=== PATIENT | male | born 1950 | race Caucasian/White ===

== ENCOUNTER → 2016-07-09 | Outpatient (CLI) | payer OTHER ==
[~2016-07-09] MED LIST: ASPI81TA28 PO; ATOR-24 PO; BND25 PO; CHOL200010; CIPR-255 PO; DICY20TA35 PO; EPP3/2 IM; HYDROCODONE PO; HYG/25 PO; LEVO100T PO; LISI-792 PO; METR-163 PO; MULT-513 PO; NAPR1TAB9 PO; ONDA4TAB10 SL; POTA10CA28 PO; POTASSIUM OTC PO; TYLOTC500 PO
[2016-07-09 12:57] LABS: CHOLESTEROL/HDL RATIO 7.2
[2016-07-09 13:10] LABS: BLOOD UREA NITROGEN 15 mg/dl (7-18); BUN/CREATININE RATIO 16.3 (10-20); CALCIUM 9.1 mg/dl (8.5-10.1); CARBON DIOXIDE 28 mmol/L (21-32); CHLORIDE 103 mmol/L (98-107); CREATININE 0.94 mg/dl (0.60-1.40); GLUCOSE 127 mg/dl (70-99); POTASSIUM 3.7 mmol/L (3.5-5.1); SODIUM 139 mmol/L (136-145)
[2016-07-09 13:13] LABS: ALB/GLOB RATIO 1.1 (0.9-2); ALKALINE PHOSPHATASE 57 U/L (45-117); ALT/SGPT 115 U/L (12-78); AST/SGOT 59 U/L (15-37)
== END | disposition home or self-care (01) ==
LOC: C.LABPVFM 08:02
PROVIDERS: ATTEND Nurse Practitioner Family
DX: E78.5 Hyperlipidemia, unspecified (principal); R73.01 Impaired fasting glucose; R25.0 Abnormal head movements; R07.9 Chest pain, unspecified; I10 Essential (primary) hypertension; R25.2 Cramp and spasm

== ENCOUNTER 2016-10-06 14:01 | Emergency (ER) | payer OTHER ==
[~2016-10-06] VITALS: Ht 172.7 cm; Wt 85.9 kg
[~2016-10-06 14:01] MED LIST changes: -BND25 PO; -CHOL200010; -DICY20TA35 PO; +DIPH25CA5 PO; -EPP3/2 IM; -HYG/25 PO; -NAPR1TAB9 PO; -POTA10CA28 PO
[2016-10-06 14:05] VITALS: TEMP 36.8; Ht 172.7 cm; Wt 85.9 kg
[2016-10-06] MEDS ORDERED: SODIUM CHLORIDE 0.9% 1000ML 1,000 ML IV STA (14:30)
[2016-10-06 14:44] LABS: BASO % 0.5 %; BASO ABS # 0.05 K/uL (0-0.2); COMPLETE YES; EOS % 1.8 %; HEMATOCRIT 41.7 % (42-52); IG% 0.4 %; LYMPH % 22.3 %; LYMPH ABS # 2.16 K/uL (1.2-3.4); MEAN CELL VOLUME 87.6 fL (80-100); MEAN CORPUSCULAR HEMOGLOBIN 32.6 pg (25-34); MEAN CORPUSCULAR HGB CONC 37.2 g/dl (32-36); MEAN PLATELET VOLUME 10.2 fL (7.4-10.4); MONO % 8.2 %; NEUT % 66.8 %; PLATELET COUNT 187 K/uL (130-400); RED BLOOD COUNT 4.76 M/uL (4.7-6.1)
[2016-10-06] MEDS ORDERED: OPTIRAY 320 IV PRN (14:45)
[2016-10-06 15:00] LABS: BUN/CREATININE RATIO 17.1 (10-20); CALCIUM 9.4 mg/dl (8.5-10.1); CREATININE 0.83 mg/dl (0.60-1.40); POTASSIUM 3.2 mmol/L (3.5-5.1)
[2016-10-06 15:03] LABS: ALB/GLOB RATIO 1.4 (0.9-2)
[2016-10-06] MEDS ORDERED: CHOL200010 (15:54)
[2016-10-06] MEDS ORDERED: HYG/25 PO (15:54)
--- NOTE | 2016-10-06 16:23 | DIAGNOSTIC IMAGING REPORT ---
ABDOMEN AND PELVIS CT WITH IV CONTRAST CT DOSE: 872.06 mGycm HISTORY: Right flank pain RLQ pain TECHNIQUE: Multiaxial CT images of the abdomen and pelvis were performed following the use of intravenous contrast. COMPARISON STUDY: 07/01/2016 FINDINGS: Lung bases are clear. Fatty infiltration of liver. Kidneys and 8 uniformly. Spleen is unremarkable. Bowel pattern is nonobstructive. The appendix is normal. Bladder is midline. There is wall thickening of the sigmoid colon consistent with chronic diverticulosis. There is no evidence for abscess collection or obstruction. IMPRESSION: Chronic sigmoid diverticulosis. Fatty infiltration of liver. Otherwise negative study Electronically signed by: Andrés Alamo M.D. 10/06/2016 4:21 PM Dictated Date/Time: 10/06/2016 4:19 PM
[2016-10-06 16:38] LABS: URINE APPEARANCE CLEAR (CLEAR); URINE BILIRUBIN NEG (NEG); URINE COLOR YELLOW; URINE NITRITE NEG (NEG); URINE PH 5.5 (4.5-7.5); URINE SPECIFIC GRAVITY 1.021 (1.000-1.030); UROBILINOGEN NEG (NEG); ZZUR CULT IF INDIC CLEAN CATCH NO
[2016-10-06 16:46] LABS: MANUAL MICROSCOPIC REQUIRED? NO; REVIEW REQ? NO
[2016-10-06] MEDS ORDERED: NAPR1TAB9 PO (16:54)
[2016-10-06] MEDS ORDERED: DICY20TA35 PO (17:03)
--- NOTE | 2016-10-06 17:03 | EMERGENCY ROOM VISIT NOTE ---
History First contact with patient: 14:22 Chief Complaint: ABDOMINAL PAIN Stated Complaint: SEVERE PAIN RT LWR STOMACH Nursing Triage Summary: pt reports he has had right abd pain x 3 weeks "it went away and then came back 4 days ago and tody the pain is up higher at my belt line, i'm going to bawl, i need to work so i just want to go home, i guess i will need an operation." pt denies any nausea or vomitting. History of Present Illness The patient is a 66 year old male who presents to the Emergency Room with complaints of right lower abdominal pain. The patient states that he had pain in the right lower abdomen approximately 3 weeks ago. He states that the pain went away, but returned one week ago. He states that it has worsened over the past 2 days and has been worse when he is coughing. He has had a normal appetite and denies any nausea or vomiting. His bowel movements have been normal. He denies any urinary symptoms. The patient denies any history of abdominal problems or abdominal surgeries. He rates the discomfort a 4/10. He is not taking any medications at home for the pain. Review of Systems A complete 10-point Review of Systems was discussed with the patient, with pertinent positives and negatives listed in the History of Present Illness. All remaining Review of Systems questions can be considered negative unless otherwise specified. Past Medical/Surgical History Medical Problems: (1) Abrasion of chest wall (2) Bursitis of elbow (3) Calcific tendinitis (4) Injury caused by animal (5) Left leg injury (6) Multiple abrasions Social History Smoking Status: Current Every Day Smoker Marital Status: Housing Status: lives with family Occupation Status: employed Current/Historical Medications Scheduled Aspirin (Aspirin Ec), 81 MG PO DAILY Atorvastatin (Lipitor), 40 MG PO DAILY Chlorthalidone (Hygroton), 25 MG PO DAILY Cholecalciferol (Vitamin D), 2,000 UNITS DAILY Levothyroxine Sodium (Synthroid), 100 MCG PO DAILY Multivitamins/Minerals (Mvi With Minerals), 1 TAB PO DAILY [Potassium Otc], 1 TAB PO DAILY Scheduled PRN Acetaminophen (Tylenol), 1,000 MG PO BID PRN for Headache or Pain Dicyclomine Hcl (Bentyl), 1 TAB PO TID PRN for Pain Naproxen (Aleve), 440 MG PO QAM PRN for Pain Allergies Coded Allergies: Penicillins (Verified Allergy, Unknown, HIVES, 07/01/16) PCN CAUSED HIVES, BUT PT HAS TAKEN AMOXICILLIN W/O PROBLEMS; NO RESP PROBLEMS WITH PCN Codeine (Verified Adverse Reaction, Unknown, makes me feel weird, 07/01/16 ) Uncoded Allergies: ENVIRONMENTAL (Allergy, Intermediate, RUNNY NOSE, ITCHY EYES, 11/26/14) Physical Exam Vital Signs Date Time Temp Pulse Resp B/P Pulse Ox O2 Delivery O2 Flow Rate FiO2 10/06/16 17:18 79 20 153/99 93 10/06/16 15:50 82 20 159/79 95 Room Air 10/06/16 14:05 36.8 89 20 171/95 94 Room Air Physical Exam VITALS: Vitals are noted on the nurse's note and reviewed by myself. Vital signs stable. GENERAL: This is a 66-year-old male, in no acute distress, nondiaphoretic, well- developed well-nourished. HEART: Regular rate and rhythm without murmurs gallops or rubs. LUNGS: Clear to auscultation bilaterally without wheezes, rales or rhonchi. ABDOMEN: Positive bowel sounds x 4. Soft, with tenderness over the right lower quadrant. No guarding or rebound tenderness. No masses or organomegaly. NEURO: Patient was alert and oriented to person place and time. Medical Decision & Procedures ER Provider Diagnostic Interpretation: ABDOMEN AND PELVIS CT WITH IV CONTRAST CT DOSE: 872.06 mGycm HISTORY: Right flank pain RLQ pain TECHNIQUE: Multiaxial CT images of the abdomen and pelvis were performed following the use of intravenous contrast. COMPARISON STUDY: 07/01/2016 FINDINGS: Lung bases are clear. Fatty infiltration of liver. Kidneys and 8 uniformly. Spleen is unremarkable. Bowel pattern is nonobstructive. The appendix is normal. Bladder is midline. There is wall thickening of the sigmoid colon consistent with chronic diverticulosis. There is no evidence for abscess collection or obstruction. IMPRESSION: Chronic sigmoid diverticulosis. Fatty infiltration of liver. Otherwise negative study Laboratory Results 10/06/16 14:30 Red Blood Count 4.76, Mean Corpuscular Volume 87.6, Mean Corpuscular Hemoglobin 32.6, Mean Corpuscular Hemoglobin Concent 37.2, Mean Platelet Volume 10.2, Neutrophils (%) (Auto) 66.8, Lymphocytes (%) (Auto) 22.3, Monocytes (%) (Auto) 8.2, Eosinophils (%) (Auto) 1.8, Basophils (%) (Auto) 0.5, Neutrophils # (Auto) 6.48, Lymphocytes # (Auto) 2.16, Monocytes # (Auto) 0.80, Eosinophils # (Auto) 0.17, Basophils # (Auto) 0.05 10/06/16 14:30 Test 10/06/16 14:30 10/06/16 15:30 White Blood Count 9.70 K/uL (4.8-10.8) Red Blood Count 4.76 M/uL (4.7-6.1) Hemoglobin 15.5 g/dL (14.0-18.0) Hematocrit 41.7 % (42-52) Mean Corpuscular Volume 87.6 fL (80-100) Mean Corpuscular Hemoglobin 32.6 pg (25-34) Mean Corpuscular Hemoglobin Concent 37.2 g/dl (32-36) Platelet Count 187 K/uL (130-400) Mean Platelet Volume 10.2 fL (7.4-10.4) Neutrophils (%) (Auto) 66.8 % Lymphocytes (%) (Auto) 22.3 % Monocytes (%) (Auto) 8.2 % Eosinophils (%) (Auto) 1.8 % Basophils (%) (Auto) 0.5 % Neutrophils # (Auto) 6.48 K/uL (1.4-6.5) Lymphocytes # (Auto) 2.16 K/uL (1.2-3.4) Monocytes # (Auto) 0.80 K/uL (0.11-0.59) Eosinophils # (Auto) 0.17 K/uL (0-0.5) Basophils # (Auto) 0.05 K/uL (0-0.2) RDW Standard Deviation 43.2 fL (36.4-46.3) RDW Coefficient of Variation 13.4 % (11.5-14.5) Immature Granulocyte % (Auto) 0.4 % Immature Granulocyte # (Auto) 0.04 K/uL (0.00-0.02) Anion Gap 9.0 mmol/L (3-11) Est Creatinine Clear Calc Drug Dose 95.9 ml/min Estimated GFR () 107.8 Estimated GFR (Non- 93.0 BUN/Creatinine Ratio 17.1 (10-20) Calcium Level 9.4 mg/dl (8.5-10.1) Total Bilirubin 0.8 mg/dl (0.2-1) Aspartate Amino Transf (AST/SGOT) 35 U/L (15-37) Alanine Aminotransferase (ALT/SGPT) 70 U/L (12-78) Alkaline Phosphatase 63 U/L (45-117) Total Protein 7.7 gm/dl (6.4-8.2) Albumin 4.5 gm/dl (3.4-5.0) Globulin 3.2 gm/dl (2.5-4.0) Albumin/Globulin Ratio 1.4 (0.9-2) Lipase 476 U/L (73-393) Urine Color YELLOW Urine Appearance CLEAR (CLEAR) Urine pH 5.5 (4.5-7.5) Urine Specific [place] 1.021 (1.000-1.030) Urine Protein NEG (NEG) Urine Glucose (UA) NEG (NEG) Urine Ketones NEG (NEG) Urine Occult Blood NEG (NEG) Urine Nitrite NEG (NEG) Urine Bilirubin NEG (NEG) Urine Urobilinogen NEG (NEG) Urine Leukocyte Esterase NEG (NEG) Medications Administered Medications (Trade) Dose Ordered Sig/Melo Route Start Time Stop Time Status Last Admin Dose Admin Sodium Chloride (Nss 1000ml) 1,000 ml @ 999 mls/hr Q1H1M STAT IV 10/06/16 14:30 10/06/16 15:30 DC 10/06/16 14:30 999 MLS/HR Medical Decision Differential diagnosis includes appendicitis, diverticulitis, bowel obstruction , hernia, gastroenteritis, colitis, malignancy, kidney stone, among others. The patient was evaluated as above. Labs were drawn and IV access was obtained. Imaging studies were performed and read by radiology as above. The patient was medicated with 1 L normal saline solution. The patient was reassessed multiple times during their stay in the emergency department and remained in stable condition. The patient is a 66-year-old male who presents today complaining of right lower quadrant abdominal pain. Labs revealed no leukocytosis, anemia or concerning electrolyte abnormalities. Urinalysis was not suggestive of infection. Lipase was elevated at 476, but given the patient's history and physical exam I do not feel this represents pancreatitis. CT of the abdomen and pelvis was performed and showed no acute infectious findings within the abdomen. The patient will be placed on Bentyl in case this is intestinal spasms. He was instructed to follow-up with his primary care provider for further evaluation of his abdominal pain. He was instructed to return here with any worsening of his current condition or new/concerning symptoms. The patient requested multiple times to be able to drink his Mountain Dew and did not appear to be in significant discomfort on exam. Based on the patient's presentation, lab results, and imaging studies, I feel the patient is stable for outpatient treatment. The patient's case was reviewed with Dr. Li, ED attending physician, who agreed with my assessment and treatment plan. Discharge instructions were reviewed with the patient. The patient verbalized understanding of my assessment and treatment plan and was discharged home in good condition. Impression Primary Impression: Right lower quadrant abdominal pain Departure Information Dispostion Home / Self-Care Condition GOOD Prescriptions Dicyclomine Hcl (BENTYL) 20 Mg Tab 1 TAB PO TID Y for Pain for 7 Days, #21 TAB Prov: Glenna Chaves .CASSANDRA 10/06/16 Referrals Carrie Taylor (PCP) Patient Instructions My [facility] Additional Instructions You have been treated in the Emergency Department for your Abdominal Pain. Laboratory results and imaging studies have ruled out any emergent causes for your abdominal pain which would warrant admission or surgery. Bentyl 3 times a day as needed for pain. For pain control, you can use the following [id number] medicines (if >12 yo): - Regular strength (325mg/tab) Tylenol (acetaminophen) 2 tabs every 4-6 hours as needed. Do not exceed 12 tablets in a 24 hour period. Avoid taking more than 4 grams (4000 mg) of Tylenol per day. This includes any other sources of acetaminophen you may take on a regular basis. - Regular strength (200 mg/tab) Advil (ibuprofen) 1-2 tabs every 4-6 hours as needed. Do not exceed a dose of 3200 mg per day. Drink plenty of water and stay well hydrated. Follow-up with your primary care provider within 48 hours for reevaluation of your abdominal pain. Return to the emergency department if your symptoms persist despite treatment plan outlined above or if the following symptoms occur: increased fevers, chills , worsening nausea/vomiting, blood in your stool or urine.
[2016-10-06 17:18] VITALS: BP 153/99; PULSE 79; O2SAT 93
== END 2016-10-06 17:20 | disposition home or self-care (01) ==
LOC: C.EDB 14:03 → C.EDC 17:20
DX: R10.9 Unspecified abdominal pain (principal); F17.210 Nicotine dependence, cigarettes, uncomplicated; Z79.82 Long term (current) use of aspirin; Z79.899 Other long term (current) drug therapy

== ENCOUNTER 2016-10-24 13:27 | Emergency (ER) | payer OTHER ==
[~2016-10-24] VITALS: Ht 172.7 cm; Wt 85.0 kg
[~2016-10-24 13:27] MED LIST changes: +CHOL200010; -CIPR-255 PO; -DIPH25CA5 PO; -HYDROCODONE PO; +HYG/25 PO; -LISI-792 PO; -METR-163 PO; +NAPR1TAB9 PO; -ONDA4TAB10 SL
[2016-10-24] MEDS ORDERED: METHYLPREDNISOLONE 125 MG VIAL IV STA (13:34)
[2016-10-24] MEDS ORDERED: EpINEphrine INJ 1MG/ML AMP 1 MG/ML AMP SQ STA (13:34)
[2016-10-24] MEDS ORDERED: ALBUT/IPRATROP 3MG/0.5MG NEB 3 ML VIAL INH STA (13:34)
[2016-10-24] MEDS ORDERED: EPINEPHRINE ADULT AUTO-INJECT 0.3 MG SYR ONE (13:45)
[2016-10-24] MEDS ORDERED: SODIUM CHLORIDE 0.9% 1000ML 1,000 ML IV ONE (13:45)
[2016-10-24 13:50] VITALS: Ht 172.7 cm; Wt 85.0 kg
[2016-10-24 13:51] VITALS: O2SAT 99
--- NOTE | 2016-10-24 13:54 | EMERGENCY ROOM VISIT NOTE ---
History Report prepared by Yusef: Ann Benavidez Under the Supervision of: Dr. Migel Li M.D. First contact with patient: 13:29 Chief Complaint: ALLERGIC REACTION Stated Complaint: ALLERGIC REACTION/UNKNOWN, SOB, SWOLLEN EYES History of Present Illness The patient is a 66 year old male who presents to the Emergency Room with complaints of an episode of an unknown allergic reaction starting about an hour ago. 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 The patient states that he became short of breath. He states he went into the house and took a Benadryl. He reports that shortly after his head became very itchy. He states that he is allergic to Penicillin, but did not take any recently. The patient states he has no idea what started the reaction. The patient does note that he takes a Benadryl year round for allergies, but this has never happened before. He complains of being very itchy and dizzy. The patient denies any feeling of his throat swelling. The patient denies a history of heart problems, but notes a past right knee surgery. Per EMS, his heart rate was 80 systolic and he was on 6 L of O2 per a minute. Source of History: patient Onset: about an hour Position: other (global) Quality: other (allergic reaction) Timing: other (episode) Associated Symptoms: + SOB Note: The patient complains of dizziness and itchiness over his whole body. The patient denies any feeling of throat swelling. Review of Systems All systems have been listed, reviewed, and are negative other than those previously mentioned. Please see Additional Medical History Sheet. Past Medical & Surgical Medical Problems: (1) Abrasion of chest wall (2) Bursitis of elbow (3) Calcific tendinitis (4) Injury caused by animal (5) Left leg injury (6) Multiple abrasions Family History No pertinent family history. Social History Smoking Status: Current Every Day Smoker Marital Status: Housing Status: lives with family Occupation Status: employed Current/Historical Medications Scheduled Aspirin (Aspirin Ec), 81 MG PO DAILY Atorvastatin (Lipitor), 40 MG PO DAILY Chlorthalidone (Hygroton), 25 MG PO DAILY Cholecalciferol (Vitamin D), 2,000 UNITS DAILY Epinephrine (Epipen), 0.3 MG IM UD Levothyroxine Sodium (Synthroid), 100 MCG PO DAILY Multivitamins/Minerals (Mvi With Minerals), 1 TAB PO DAILY Potassium Chloride (Micro-K Ext Rel), 10 MEQ PO BID [Potassium Otc], 1 TAB PO DAILY Scheduled PRN Acetaminophen (Tylenol), 1,000 MG PO BID PRN for Headache or Pain Naproxen (Aleve), 440 MG PO QAM PRN for Pain Allergies Coded Allergies: Penicillins (Verified Allergy, Unknown, HIVES, 10/24/16) PCN CAUSED HIVES, BUT PT HAS TAKEN AMOXICILLIN W/O PROBLEMS; NO RESP PROBLEMS WITH PCN Codeine (Verified Adverse Reaction, Unknown, makes me feel weird, 10/24/16) Uncoded Allergies: ENVIRONMENTAL (Allergy, Intermediate, RUNNY NOSE, ITCHY EYES, 11/26/14) Physical Exam Vital Signs Date Time Temp Pulse Resp B/P Pulse Ox O2 Delivery O2 Flow Rate FiO2 10/24/16 14:21 175/86 10/24/16 14:07 99 Nasal Cannula 2.0 10/24/16 13:57 76 16 100 Nasal Cannula 2.0 10/24/16 13:51 99 Room Air 10/24/16 13:50 92 20 156/83 97 Room Air 10/24/16 13:37 99 10/24/16 13:31 156/83 Physical Exam GENERAL: Patient awake, alert, oriented x 3. Patient follows commands. Patient does not appear toxic. Patient is adequately hydrated and well- nourished. SKIN: No pallor, cyanosis. Patient is erythematic over whole body and isolated ectasia. HEENT: Normal head, pupils equal, reactive to light and accommodation. Oral cavity and posterior pharynx appear normal. No swelling of the tongue, no swelling of the uvula. Neck: Without adenopathy, no neck vein distention. LUNGS: Clear to auscultation. No wheezes, no rales, no rhonchi. HEART: No murmurs. No gallops. No rubs ABDOMEN: No masses, no rebound, no hepatomegaly or splenomegaly. EXTREMITIES: No signs of trauma. No pedal or pretibial edema. No calf or thigh tenderness. No signs of bite or sting. No focal signs of infection. Well healed scar on right knee. NEUROLOGIC: Cranial nerves II-XII within normal limits. No gross motor sensory function deficits. Medical Decision & Procedures ER Provider Diagnostic Interpretation: Radiology results as stated below per my review and radiologist interpretation: CHEST ONE VIEW PORTABLE HISTORY: allergic rxn COMPARISON: Chest 07/01/2016. FINDINGS: Punctate calcific granuloma within the left lung apex. The lungs are otherwise clear. No pleural effusions. No pneumothorax. The heart is normal in size. Degenerative changes within the shoulders are again noted. IMPRESSION: No significant change compared to the prior study. No acute process. Electronically signed by: Tom Stapleton M.D. 10/24/2016 3:55 PM Dictated Date/Time: 10/24/2016 3:54 PM Laboratory Results 10/24/16 13:45 10/24/16 13:45 Test 10/24/16 13:45 Red Blood Count 5.47 M/uL (4.7-6.1) Mean Corpuscular Volume 89.2 fL (80-100) Mean Corpuscular Hemoglobin 31.8 pg (25-34) Mean Corpuscular Hemoglobin Concent 35.7 g/dl (32-36) RDW Standard Deviation 43.3 fL (36.4-46.3) RDW Coefficient of Variation 13.3 % (11.5-14.5) Mean Platelet Volume 10.3 fL (7.4-10.4) Anion Gap 10.0 mmol/L (3-11) Est Creatinine Clear Calc Drug Dose 66.0 ml/min Estimated GFR () 73.6 Estimated GFR (Non- 63.5 BUN/Creatinine Ratio 12.2 (10-20) Calcium Level 9.0 mg/dl (8.5-10.1) Troponin I < 0.015 ng/ml (0-0.045) Laboratory results as stated above per my review. Medications Administered Medications (Trade) Dose Ordered Sig/Melo Route Start Time Stop Time Status Last Admin Dose Admin Methylprednisolone Sodium Succinate 125 mg 125 mg NOW STAT IV 10/24/16 13:34 10/24/16 13:37 DC 10/24/16 13:34 125 MG Sodium Chloride (Nss 1000ml) 1,000 ml @ 1,000 mls/hr Q1H ONCE IV 10/24/16 13:45 10/24/16 14:44 DC 10/24/16 13:45 1,000 MLS/HR Albuterol/ Ipratropium (Duoneb) 3 ml NOW STAT INH 10/24/16 13:34 10/24/16 13:37 DC 10/24/16 13:34 3 ML Epinephrine (Epipen) 0.3 mg STK-MED ONCE .ROUTE 10/24/16 13:45 10/24/16 13:46 DC 10/24/16 13:43 0.3 MG ECG Indication: SOB/dyspnea Rate (beats per minute): 76 Rhythm: normal sinus Findings: nonspecific-ST abn, no ectopy ED Course 1329: Past medical records reviewed. The patient was evaluated in room C10. A complete history and physical examination was performed. 1334: Ordered Duoneb 3 ml INH, Epinephrine HCl 0.3 mg SQ, Solu-Medrol IV 125 mg IV. 1345: Epipen 0.3 mg ROUTE, NSS 1000 ml @ 1000 mls/hr IV. 1527: I reevaluated the patient and he is resting comfortably. 1601:Ordered Klor-Con M10 10 meq PO. 1606: Upon reevaluation, the patient appeared to have improvement of his symptoms. I discussed today's findings with the patient. He verbalized agreement of the treatment plan. The patient was discharged home. Medical Decision Differential Diagnoses include allergic reaction, anaphylaxis, hypertension On arrival the patient was having and a half lactic reaction with urticaria has significant erythema. He did not appear to have a compromised airway at the time but was worse in the field. The patient was given another dose of epinephrine here. He was given Solu-Medrol. He was given albuterol treatment. Chest x-ray was also obtained which appeared clear. The patient gradually improved. At time of discharge, the patient was no longer erythematous. He was breathing without difficulty. It was felt safe to return home. The patient will continue Benadryl and inhaler as needed. The patient will be prescribed an EpiPen. He is to return if he's having increased shortness of breath or other difficulties with an allergic reaction. The patient is hypokalemic. He has been before. The patient was given 1 dose of potassium here and a prescription for the same. Impression Primary Impression: Anaphylaxis Additional Impression: Hypokalemia Scribe Attestation The scribe's documentation has been prepared under my direction and personally reviewed by me in its entirety. I confirm that the note above accurately reflects all work, treatment, procedures, and medical decision making performed by me. Departure Information Dispostion Home / Self-Care Prescriptions Potassium Chloride (Micro-K Ext Rel) 10 Meq Capcr 10 MEQ PO BID, #60 CAP Prov: Migel Li M.D. 10/24/16 Epinephrine (EPIPEN) 0.3 Mg/0.3 Ml Inj 0.3 MG IM UD for allergic reaction, #2 BOX 1 Refill Prov: Migel Li M.D. 10/24/16 Referrals Carrie TaylorNMirandaPMiranda (PCP) Forms HOME CARE DOCUMENTATION FORM, IMPORTANT VISIT INFORMATION Patient Instructions ED Allergic Reaction General Other, My [facility] Additional Instructions History of Left great Use the EpiPen if you have a severe allergic reaction and then go directly to the emergency department. 50 mg of Benadryl every 6 hours as needed for hives or allergic symptoms. Do not drive or operate machinery while taking Benadryl. Follow-up with your family physician. Albuterol inhaler 2 puffs every 2-3 hours as needed for allergic reaction resulting in difficulty breathing. 1 potassium tablet twice a day for 30 days. Problem Qualifiers
[2016-10-24 14:02] LABS: HEMATOCRIT 48.8 % (42-52); MEAN CELL VOLUME 89.2 fL (80-100); MEAN CORPUSCULAR HEMOGLOBIN 31.8 pg (25-34); MEAN CORPUSCULAR HGB CONC 35.7 g/dl (32-36); MEAN PLATELET VOLUME 10.3 fL (7.4-10.4); PLATELET COUNT 268 K/uL (130-400); RED BLOOD COUNT 5.47 M/uL (4.7-6.1)
[2016-10-24 14:20] LABS: BLOOD UREA NITROGEN 15 mg/dl (7-18); BUN/CREATININE RATIO 12.2 (10-20); CARBON DIOXIDE 29 mmol/L (21-32); CHLORIDE 102 mmol/L (98-107); GLUCOSE 155 mg/dl (70-99); POTASSIUM 2.9 mmol/L (3.5-5.1); SODIUM 141 mmol/L (136-145)
[2016-10-24] MEDS ORDERED: EPP3/2 IM (15:55)
--- NOTE | 2016-10-24 15:57 | DIAGNOSTIC IMAGING REPORT ---
CHEST ONE VIEW PORTABLE HISTORY: allergic rxn COMPARISON: Chest 07/01/2016. FINDINGS: Punctate calcific granuloma within the left lung apex. The lungs are otherwise clear. No pleural effusions. No pneumothorax. The heart is normal in size. Degenerative changes within the shoulders are again noted. IMPRESSION: No significant change compared to the prior study. No acute process. Electronically signed by: Tom Stapleton M.D. 10/24/2016 3:55 PM Dictated Date/Time: 10/24/2016 3:54 PM
[2016-10-24] MEDS ORDERED: POTA10CA28 PO (15:58)
[2016-10-24] MEDS ORDERED: POTASSIUM CHLORIDE 10 MEQ TABCR PO STA (16:01)
[2016-10-24 16:15] VITALS: BP 118/68; PULSE 93; O2SAT 92
== END 2016-10-24 16:16 | disposition home or self-care (01) ==
LOC: EDBD 13:27 → C.EDC 13:29
DX: T78.2XXA Anaphylactic shock, unspecified, initial encounter (principal); X58.XXXA Exposure to other specified factors, initial encounter; E87.6 Hypokalemia; F17.210 Nicotine dependence, cigarettes, uncomplicated; Z79.82 Long term (current) use of aspirin; Z79.899 Other long term (current) drug therapy

== ENCOUNTER → 2016-11-05 | Outpatient (CLI) | payer OTHER ==
[~2016-11-05] MED LIST changes: +EPP3/2 IM; +POTA10CA28 PO
--- NOTE | 2016-11-05 16:07 | DIAGNOSTIC IMAGING REPORT ---
CHEST 2 VIEWS ROUTINE CLINICAL HISTORY: ACUTE BRONCHITIS COMPARISON STUDY: 10/24/2016 FINDINGS: The cardiac and mediastinal contours are normal. There is no evidence of focal pulmonary consolidation. There is no evidence of failure. No pleural effusions are visualized.[ There is a calcified granuloma within the left lung apex. IMPRESSION: No active disease in the chest. Electronically signed by: Gabino Putnam M.D. 11/05/2016 4:06 PM Dictated Date/Time: 11/05/2016 4:05 PM
== END | disposition home or self-care (01) ==
LOC: C.RADPV 15:53
PROVIDERS: ATTEND Family Medicine
DX: J20.9 Acute bronchitis, unspecified (principal)

== ENCOUNTER → 2017-02-11 | Outpatient (CLI) | payer OTHER ==
[2017-02-11 13:29] LABS: ALT/SGPT 75 U/L (12-78); AST/SGOT 37 U/L (15-37); BLOOD UREA NITROGEN 12 mg/dl (7-18); BUN/CREATININE RATIO 12.9 (10-20); CALCIUM 9.3 mg/dl (8.5-10.1); CARBON DIOXIDE 26 mmol/L (21-32); CHLORIDE 103 mmol/L (98-107); CREATININE 0.94 mg/dl (0.60-1.40); GLUCOSE 177 mg/dl (70-99); POTASSIUM 3.8 mmol/L (3.5-5.1); SODIUM 136 mmol/L (136-145)
[2017-02-11 13:33] LABS: CHOLESTEROL/HDL RATIO 6.2
[2017-02-11 13:37] LABS: ALB/GLOB RATIO 1.2 (0.9-2); ALKALINE PHOSPHATASE 64 U/L (45-117)
[2017-02-11 13:50] LABS: ESTIMATED AVERAGE GLUCOSE 123 mg/dl; HA1C FLAG Normal (Normal)
[2017-02-15 22:38] LABS: CK TOTAL 202 U/L (44-196); CK-BB None Detected (None Detected); CK-MB 0 % (<5); CK-MM 100 % (95-100)
--- NOTE | 2017-02-16 12:28 | CODING QUERY MEDICAL NECESSITY ---
CQSUPPORTING DIAGNOSIS NEEDED A supporting diagnosis is required for the test/procedure performed on this patient in order for us to be reimbursed by the patient's insurance. Please provide a supporting diagnosis for the following test/procedure listed below next to the test name along with your signature. *If there is no additional diagnosis for this patient that would support the following test/procedure please document that below next to the test/procedure. Test(s)/Procedure(s) that require a supporting diagnosis: DOS 02/11/17 HEPATITIS PANEL QUERY RETURNED WITH SIGNATURE BUT NO DIAGNOSIS SENDING FOR DIAGNOSIS AND SIGNATURE THANK YOU Provider Signature: Date: Thank you Alexa Cortes Health Information Management Once completed, please kindly fax back to [phone] For questions please call [phone]
== END | disposition home or self-care (01) ==
LOC: C.LABPVFM 08:45
PROVIDERS: ATTEND Family Medicine
DX: I10 Essential (primary) hypertension (principal); E78.5 Hyperlipidemia, unspecified; R25.2 Cramp and spasm; R73.01 Impaired fasting glucose; E03.9 Hypothyroidism, unspecified; E55.9 Vitamin D deficiency, unspecified; E87.6 Hypokalemia